=== PATIENT | female | born 1990 | race Caucasian/White ===

== ENCOUNTER → 2017-04-30 15:38 | Outpatient (CLI) | payer OTHER, SELFPAY ==
[2017-04-30 18:58] LABS: Chlamydia Trachomatis by PCR Negative (Negative); Neisserai gonorrhoeae by PCR Negative (Negative); Probe Check PASS; Sample Adequacy Control PASS; Specimen Processing Control PASS
== END ==
PROVIDERS: Family Provider Family Medicine; PCP Family Medicine; Visit Provider Obstetrics & Gynecology
DX: Z11.3 Encounter for screening for infections with a predominantly sexual mode of transmission (principal); Z32.01 Encounter for pregnancy test, result positive
CPT/HCPCS: 87491; 87591

== ENCOUNTER → 2017-05-20 16:43 | Outpatient (CLI) | payer OTHER, SELFPAY ==
[2017-05-20 18:20] LABS: Color, Urine Yellow (Yellow); Glucose, Dipstick Normal (Normal); Ketone-Dipstick 5 mg/dl (Negative); Leukocyte Esterase-Dipstick 100 /ul (Negative); Nitrite-Dipstick Negative (Negative); Occult Blood-Urine 10 /ul (Negative); Protein-Dipstick Negative (Negative); Specific Gravity, Urine 1.025 (1.002-1.030); Urine Bilirubin Dipstick Negative (Negative); Urine Clarity Clear (Clear); Urine Urobilinogen Normal (Normal)
[2017-05-20 18:27] LABS: Absolute Lymphocyte Count 2.32 X10^3/ul (0.83-4.51); Absolute Neutrophil Count 7.1 X10^3/uL (2.0-7.7); Basophil# 0.03 X10^3/uL; Basophil% 0.3 % (0-1); Eosinophil# 0.12 X10^3/uL; Eosinophils% 1.1 % (0-5); Hematocrit 39.3 % (37-47); Hemoglobin 13.1 g/dl (12.0-15.0); Lymphocyte # 2.32 X10^3/ul (4.0); Lymphocyte % 21.7 % (19-41); Mean Corp Hgb Conc 33.3 g/gl (32-36); Mean Corpuscular Hgb 28.1 pg (27.0-32.0); Mean Corpuscular Volume 84.2 fL (81-99); Mean Platelet Vol. 10.8 fl (6.2-12.0); Monocyte# 1.11 X10^3/uL; Monocyte% 10.4 % (0-10); Neutrophil # 7.11 X10^3/uL (2.7-7.7); Neutrophil % 66.4 % (47-70); POSITIVE COUNT NO; POSITIVE DIFFERENTIAL NO; POSITIVE MORPHOLOGY NO; Platelet Count 351 K/mm3 (150-450); RBC Distribution Width CV 12.4 % (11.6-14.6); RBC Distribution Width SD 37.7 fl (35.1-43.9); Red Blood Count 4.67 M/mm3 (4.2-5.4); White Blood Count 10.7 K/mm3 (4.4-11.0)
[2017-05-20 18:36] LABS: COTININE Drug Screen Negative (<200 ng/mL); Thyroid Stim Hormone (TSH) 1.11 uIU/mL (0.358-3.74)
[2017-05-20 18:41] LABS: Amphetamine Urine VISTA NEGATIVE (<1000 ng/mL); Barbiturate Urine VISTA NEGATIVE (< 200 ng/mL); Benzodiazepine Urine VISTA NEGATIVE (< 200 ng/mL); Cocaine Urine VISTA NEGATIVE (< 300 ng/mL); Ecstacy Urine VISTA NEGATIVE (< 500 ng/mL); Methadone Urine VISTA NEGATIVE (< 300 ng/mL); PCP Urine VISTA NEGATIVE (< 25 ng/mL); THC Urine VISTA NEGATIVE (< 50 ng/mL); Vista UDS pH Range 5
[2017-05-20 19:35] LABS: HIV - WCH Non-Reactive (Nonreactive); Rubella IgG 16.8 IU/mL
[2017-05-22 07:08] LABS: Prenatal RPR NONREACTIVE (NONREACTIVE)
[2017-05-22 14:59] LABS: HEPATITIS B SURFACE AG Negative (Negative); Hep C Antibodies <0.1 s/co ratio (0.0-0.9)
== END ==
PROVIDERS: Visit Provider Obstetrics & Gynecology
DX: Z34.81 Encounter for supervision of other normal pregnancy, first trimester (principal)
CPT/HCPCS: 36415; 80307; 81002; 84443; 85025; 86703; 86762; 86803; 87086; 87088; 87340

== ENCOUNTER → 2017-08-04 11:34 | Outpatient (CLI) | payer OTHER, SELFPAY | PROVIDERS: Family Provider Family Medicine; Visit Provider Obstetrics & Gynecology | DX: R00.0 Tachycardia, unspecified (principal) | CPT/HCPCS: 93225; 93226 ==

== ENCOUNTER → 2017-09-29 08:46 | Outpatient (CLI) | payer OTHER, SELFPAY ==
[2017-09-29 11:13] LABS: Hematocrit 36.6 % (37-47); Hemoglobin 12.5 g/dl (12.0-15.0); Mean Corp Hgb Conc 34.2 g/gl (32-36); Mean Corpuscular Hgb 29.5 pg (27.0-32.0); Mean Corpuscular Volume 86.3 fL (81-99); Mean Platelet Vol. 11.1 fl (6.2-12.0); Platelet Count 320 K/mm3 (150-450); RBC Distribution Width CV 13.2 % (11.6-14.6); RBC Distribution Width SD 40.9 fl (35.1-43.9); Red Blood Count 4.24 M/mm3 (4.2-5.4); White Blood Count 9.5 K/mm3 (4.4-11.0)
[2017-09-29 11:14] LABS: Scan Indicated on CBC? Y/N NO
[2017-09-29 11:15] LABS: Glucose Challenge Gest 1H 50g 123 mg/dL (70-140)
== END ==
PROVIDERS: Visit Provider Obstetrics & Gynecology
DX: Z34.83 Encounter for supervision of other normal pregnancy, third trimester (principal)
CPT/HCPCS: 36415; 82950; 85027; 86850

== ENCOUNTER → 2017-11-26 12:01 | Outpatient (CLI) | payer OTHER, SELFPAY ==
[2017-11-26 14:52] LABS: Group B Strep DNA By PCR Negative (Negative); Internal Control PASS; Probe Check PASS; Specimen Processing Control PASS
== END ==
PROVIDERS: Visit Provider Obstetrics & Gynecology
DX: Z36.85 Encounter for antenatal screening for Streptococcus B (principal)
CPT/HCPCS: 87081; 87653

== ENCOUNTER 2017-12-05 09:55 | Outpatient (CLI) | payer OTHER, SELFPAY ==
[2017-12-05 10:14] VITALS: BMI 33.2
--- NOTE | 2017-12-05 15:31 | OB.TRI.NOTE ---
History of Present Illness Date of Service: 12/05/17 Was patient seen by the physician?: No Reason For Visit: DECREASED MOVEMENT Date of Service: 12/05/17 Final JOLANTA: 12/21/17 Final JOLANTA Source: US <20 weeks Gestational age: 37 Weeks and 5 Days History of Present Illness: Reports decreased movement today. No signs of labor or SROM Allergies No Known Allergies Allergy (Verified 01/30/15 14:12) Physical Exam General: Alert, Oriented x3, Cooperative, No apparent distress Lungs: Clear to auscultation, Normal air movement Abdomen: Bowel Sounds Present, Non Tender, Gravid, Appropriate for Gestational Age Extremities:: No edema Neurological: Neuro grossly intact MODELING AGENT: Normal external genitalia Estimated gestational size: Appropriate for gestational size Presentation: Cephalic NST - FHR Rate Baby A Baseline: 140s Variability:: Moderate Accelerations:: 15 x 15 Decelerations:: None NST Reactive:: Yes, Appropriate for gestational age FHR Category:: Category I Uterine Activity:: irregular Impression/Plan Reassuring heart rate pattern today. No signs of labor. Kick counts instructed. f/u in office next week.
== END 2017-12-05 10:48 | disposition home or self-care (01) ==
LOC: WPOUT 10:08 → WP 10:09
PROVIDERS: Visit Provider Obstetrics & Gynecology
DX: O36.8130 Decreased fetal movements, third trimester, not applicable or unspecified (principal); Z3A.37 37 weeks gestation of pregnancy
CPT/HCPCS: 59025; 99218; G0378

== ENCOUNTER 2017-12-22 18:50 | Inpatient (IN) | payer OTHER, SELFPAY ==
[2017-12-22] MEDS: Lactated Ringers 1,000 ML 50 ML IV (20:00)
[2017-12-22 20:04] VITALS: BMI 33.5
[2017-12-22 20:09] LABS: Hematocrit 38.8 % (37-47); Mean Corp Hgb Conc 33.5 g/gl (32-36); Mean Corpuscular Hgb 28.5 pg (27.0-32.0); Mean Corpuscular Volume 85.1 fL (81-99); Mean Platelet Vol. 11.5 fl (6.2-12.0); Platelet Count 285 K/mm3 (150-450); RBC Distribution Width CV 13.6 % (11.6-14.6); RBC Distribution Width SD 41.7 fl (35.1-43.9); Red Blood Count 4.56 M/mm3 (4.2-5.4); White Blood Count 10.1 K/mm3 (4.4-11.0)
[2017-12-22 20:34] LABS: Scan Indicated on CBC? Y/N NO
[2017-12-22] MEDS: miSOPROStol 25 MCG TABLET PO (20:45)
[2017-12-23] MEDS: miSOPROStol 25 MCG TABLET PO ×3 (00:52→09:24)
--- NOTE | 2017-12-23 12:21 | PCM.PN.OB ---
Subjective: Comfortable. Objective: Afeb VSS FHR tracing Cat 1. - Physical Exam General: Alert, Oriented x3, Cooperative, No apparent distress Lungs: Clear to auscultation, Normal air movement Cardiovascular: Regular rate, Regular Rhythm Abdomen: Non Tender, Gravid, Appropriate for Gestational Age Extremities: No edema Skin: No rashes Neurological: Neuro grossly intact Psych/Mental Status: Normal Affect Comment: CE 2.5 cm 50% -3 Weight: 214 lb 1.102 oz Body Mass Index (BMI) 33.5 Intake and Output for Last 24 Hours 12/21/17 12/22/17 12/23/17 23:59 23:59 23:59 Intake Total 800 / 800 Output Total 500 / 500 1900 / 1900 Balance -500 / -500 -1100 / -1100 Laboratory Tests Past 24 Hrs 12/22/17 12/22/17 19:35 19:35 WBC 10.1 RBC 4.56 Hgb 13.0 Hct 38.8 MCV 85.1 MCH 28.5 MCHC 33.5 RDW 13.6 RDW Differential 41.7 Plt Count 285 MPV 11.5 Blood Type B NEGATIVE Antibody Screen NEGATIVE Medical Necessity - Tobacco Use Smoking Status: Never smoker Assessment/Plan Now s/p 4 doses of cytotec. Cervix now more favorable. Reassuring FHR tracing. AROM performed with clear fluid. Will start pitocin at 1:30 pm.
[2017-12-23] MEDS: 0.9% Saline Lock 10 ML Syringe IV (13:48)
[2017-12-23] MEDS: Oxytocin 30 units/NS 500 ml 30 UNITS/500 ML IV.SOLN IV (13:50)
[2017-12-23] MEDS: Lactated Ringers 1,000 ML 50 ML IV ×2 (15:00→18:54)
[2017-12-23] MEDS: fentaNYL-bupivacaine (epidural) 100 ML BAG EPIDURAL (15:16)
--- NOTE | 2017-12-23 19:23 | PCM.PN.OB ---
Subjective: Feeling some pressure with contractions. Objective: Afeb VSS - Physical Exam General: Alert, Oriented x3, Cooperative, No apparent distress Abdomen: Gravid, Appropriate for Gestational Age Skin: No rashes Neurological: Neuro grossly intact Psych/Mental Status: Normal Affect Comment: CE FD +1 station Weight: 214 lb 1.102 oz Body Mass Index (BMI) 33.5 Intake and Output for Last 24 Hours 12/21/17 12/22/17 12/23/17 23:59 23:59 23:59 Intake Total 800 / 800 Output Total 500 / 500 1900 / 1900 Balance -500 / -500 -1100 / -1100 Laboratory Tests Past 24 Hrs 12/22/17 12/22/17 19:35 19:35 WBC 10.1 RBC 4.56 Hgb 13.0 Hct 38.8 MCV 85.1 MCH 28.5 MCHC 33.5 RDW 13.6 RDW Differential 41.7 Plt Count 285 MPV 11.5 Blood Type B NEGATIVE Antibody Screen NEGATIVE Medical Necessity - Tobacco Use Smoking Status: Never smoker Assessment/Plan Now starting pushing efforts. heart rate decelerations to the 90s with pushing efforts but good recovery to baseline after contractions. Expect vaginal delivery.
--- NOTE | 2017-12-23 19:32 | DCINST_ITS ---
Discharge Diet: No Restrictions Discharge Activity: Return to Normal Activity, May Drive, May Shower Return to work on:: 02/22/18 May shower in (days): 0 May resume sexual activity in: 4-6 weeks Call your doctor if your incision/area has: Sudden Increased Bleeding, Foul Smelling Discharge Call your doctor if you observe: Fever of 101 or Higher, Inability to urinate, Inability to have a bowel movement, Using more than one pad per hour, Shortness of breath, Chest pain, Calf discomfort, Uncontrolled pain Cleanse incision/area with: Soap & Water Additional Instructions: If you experience any of the following, contact your healthcare provider. * Bleeding that soaks a pad every hour for 2 hours * Fever 100.4 or higher * Unrelieved incision or abdominal pain * Swelling, redness, discharge or bleeding from your incision or episiotomy site * Your incision begins to separate * Problems urinating (including inability to urinate or burning while urinating). * Visual changes * Severe headache * Flu-like symptoms * Pain or redness in one of both of your breasts * Pain, warmth, tenderness or swelling in your legs, especially the calf area * Frequent nausea and vomiting * Symptoms of depression or anxiety If you experience any of the following, call 911 or go to the nearest Emergency Room. * Chest pain * Problems breathing * Seizure activity * Partial or complete paralysis of a body part, slurred speech, weakness or drooping of the face, or a sudden inability to walk or hold your balance Allergies/Adverse Reactions: Allergies No Known Allergies Allergy (Verified 12/22/17 20:01) Medications to take at Discharge Vits [Prenatabs FA ] 1 tablet PO DAILY 01/27/15 Ibuprofen 600 mg PO Q6H PRN PRN #30 tab 12/23/17 The following prescriptions were given: Ibuprofen 600 mg PO Q6H PRN PRN #30 tab PRN Reason: pain or cramping Please Follow Up With: Fredy Mena MD When: 6 weeks Primary Care Physician: Fredy Artis MD [Primary Care Provider] - Test Results: Test results from this visit will be discussed in further detail at your follow- up appointment, if applicable. Proposed Discharge Date: 12/25/17
[2017-12-23] MEDS: Oxytocin 30 units/NS 500 ml 30 UNITS/500 ML IV.SOLN 334 UNITS IV (20:45)
[2017-12-23] MEDS: Oxytocin 30 units/NS 500 ml 30 UNITS/500 ML IV.SOLN 167 UNITS IV (20:45)
--- NOTE | 2017-12-23 20:54 | PCM.OB.VAG ---
Vaginal Delivery Maternal Presentation: Medically Indicated Induction 41 weeks for post dates induction. Uncomplicated Method of Induction: Pitocin, Cytotec Medical Reason for Induction: Post term Amniotic Membrane Rupture Type: Artificial Rupture of Membrane time: 1200 Amniotic Fluid Description: Clear Final JOLANTA: 12/16/17 Final JOLANTA Source: US <20 weeks Gestational age: 41 Weeks and 0 Days [facility] doctor who attended delivery (if requested by OB): Karla Fitzgerald Date of Procedure: 12/23/17 Pre-Operative Diagnosis: Labor, repetitive fhr decelerations Post-Operative Diagnosis: same Surgery/ Procedure Performed: Vacuum Assisted Vaginal Delivery Anesthesiologist: Rocky Orta Type of Anesthesia: Epidural Description of Procedure: Progressed to FD then pushed for over 2 hours to bring heas to +2 station. Due to lack of rapid progress and repetitive heart rate decelerations to the 90s with meconium stained fluid present decision made to hasten delivery with the assist of the Kiwi vacuum device. The first two Kiwis placed would not hold suction a third was placed with care to avoid the fontanelles. Will gentle traction and two pulls over two contractions the head was delivered to the perineum. Thick meconeum stained fluid was noted. There was a loose umbical cord around the neck x 2 which was easily reduced. After delivery the mouth was suctioned and the cord clamped and cut. The baby was then taken to the warmer for evaluation by Dr. Fitzgerald. The placenta was delivered spontaneously intact with a centrally located 3VC. The uterus contracted well. Inspection revealed an intact cervix and upper vaginal. A second degree posterior vaginal tear was repaired with 2-0 vicryl. Presentation: Vertex Placental Delivery Description: Spontaneous Placenta Disposition: [facility] Percentage of Placenta Abruption: 0 Cord Vessel Description: 3 Vessels Nuchal Cord Compression: With compression Cord Gases drawn per routine: ABG, VBG Cord Entanglement: Around neck x 2, loose Drain: Perez to straight drain Estimated Blood Loss: 300cc Infant A gender: Male (1 minute): 6 (5 minute): 8 Episiotomy Description: None Laceration: Midline, Vaginal Extension/lac, 2nd degree Medications given after delivery: IV Pitocin Complications: None
[2017-12-23] MEDS: Ibuprofen 600 MG Tablet PO (23:17)
[2017-12-24] VITALS: BP 135/57; PULSE 63; RESP 18; TEMP 36.3; O2SAT 95
[2017-12-24 04:00] VITALS: BP 127/69; PULSE 56; RESP 18; TEMP 36.6; O2SAT 97
[2017-12-24] MEDS: Ibuprofen 600 MG Tablet PO ×3 (05:25→18:46)
[2017-12-24 05:38] LABS: Hematocrit 35.2 % (37-47); Mean Corp Hgb Conc 34.1 g/gl (32-36); Mean Corpuscular Hgb 29.1 pg (27.0-32.0); Mean Corpuscular Volume 85.2 fL (81-99); Mean Platelet Vol. 11.6 fl (6.2-12.0); Platelet Count 249 K/mm3 (150-450); RBC Distribution Width CV 13.9 % (11.6-14.6); RBC Distribution Width SD 42.5 fl (35.1-43.9); Red Blood Count 4.13 M/mm3 (4.2-5.4); White Blood Count 14.8 K/mm3 (4.4-11.0)
[2017-12-24 05:39] LABS: Scan Indicated on CBC? Y/N NO
--- NOTE | 2017-12-24 07:53 | PCM.PN.OB ---
Subjective: Doing well. No specific complaints. Attempting breast feeding. Objective: AFeb VSS - Physical Exam General: Alert, Oriented x3, Cooperative, No apparent distress Lungs: Clear to auscultation, Normal air movement Cardiovascular: Regular rate, Regular Rhythm Abdomen: Non Tender, - - Fundus firm nontender Extremities: No edema Skin: No rashes Neurological: Neuro grossly intact Psych/Mental Status: Normal Affect Comment: Lochia appropriate Vital Signs Temp Pulse Resp BP Pulse Ox 97.8 F 56 L 18 127/69 H 97 12/24/17 04:00 12/24/17 04:00 12/24/17 04:00 12/24/17 04:00 12/24/17 04:00 Oxygen Delivery Method Room Air Weight: 214 lb 1.102 oz Body Mass Index (BMI) 33.5 Intake and Output for Last 24 Hours 12/22/17 12/23/17 12/24/17 23:59 23:59 23:59 Intake Total 4769 / 4769 Output Total 500 / 500 4400 / 4400 700 / 700 Balance -500 / -500 369 / 369 -700 / -700 Laboratory Tests Past 24 Hrs 12/24/17 05:25 WBC 14.8 H RBC 4.13 L Hgb 12.0 Hct 35.2 L MCV 85.2 MCH 29.1 MCHC 34.1 RDW 13.9 RDW Differential 42.5 Plt Count 249 MPV 11.6 Medical Necessity - Tobacco Use Smoking Status: Never smoker Assessment/Plan Doing well on PP day#1. Hgb stable. Continue routine PP care.
[2017-12-24 08:10] VITALS: BP 127/60; PULSE 60; RESP 16; TEMP 36.4; O2SAT 97
[2017-12-24] MEDS: Prenatal Vits Tablet 1 TABLET PO (09:16)
[2017-12-24 12:00] VITALS: BP 124/67; PULSE 82; RESP 16; TEMP 36.5
[2017-12-24 16:30] VITALS: BP 123/57; PULSE 66; RESP 18; TEMP 36.5; O2SAT 96
[2017-12-24 19:45] VITALS: BP 126/58; PULSE 61; RESP 16; TEMP 36.7; O2SAT 96
[2017-12-25] MEDS: Ibuprofen 600 MG Tablet PO ×2 (00:49→08:16)
[2017-12-25 02:20] VITALS: BP 128/65; PULSE 74; RESP 16; TEMP 36.7; O2SAT 95
--- NOTE | 2017-12-25 08:25 | PCM.PN.OB ---
Subjective: No complaints. Breast feeding. Bleeding light. Objective: Afeb VSS - Physical Exam General: Alert, Oriented x3, Cooperative, No apparent distress Lungs: Clear to auscultation, Normal air movement Cardiovascular: Regular rate, Regular Rhythm Abdomen: Soft, Non Tender, Non-Distended, - - Fundus nontender Extremities: No edema Skin: No rashes Neurological: Neuro grossly intact Psych/Mental Status: Normal Affect Comment: Lochia light Vital Signs Temp Pulse Resp BP Pulse Ox 98.0 F 74 16 128/65 H 95 12/25/17 02:20 12/25/17 02:20 12/25/17 02:20 12/25/17 02:20 12/25/17 02:20 Oxygen Delivery Method Room Air Weight: 214 lb 1.102 oz Body Mass Index (BMI) 33.5 Intake and Output for Last 24 Hours 12/23/17 12/24/17 12/25/17 23:59 23:59 23:59 Intake Total 4769 / 4769 Output Total 4400 / 4400 700 / 700 Balance 369 / 369 -700 / -700 Medical Necessity - Tobacco Use Smoking Status: Never smoker Assessment/Plan Doing well on PP day#2. Cleared for discharge home today. Home going instructions and warnings given.
--- NOTE | 2017-12-25 08:27 | PCM.DC.SUM ---
Discharge Date and Diagnosis Date of Admission: 12/22/17 Date of Discharge: 12/25/17 - Primary Discharge Diagnosis S/P Vacuum assisted delivery Hospital Course and Treatment Operations: None Procedures: - - Cytotec/pitocin induction, Vacuum assisted vaginal delivery. Summary of Care Provided: The patient is a 27 year old F admitted for induction of labor at 41 weeks ega. Induction resulted in vacuum assisted delivery without complication. Post course unremarkable. Discharged home on PP day#2.[] Discharge Diet: No Restrictions Discharge Activity: Return to Normal Activity, May Drive, May Shower Return to work on:: 02/22/18 May shower in (days): 0 May resume sexual activity in: 4-6 weeks Call your doctor if your incision/area has: Sudden Increased Bleeding, Foul Smelling Discharge Call your doctor if you observe: Fever of 101 or Higher, Inability to urinate, Inability to have a bowel movement, Using more than one pad per hour, Shortness of breath, Chest pain, Calf discomfort, Uncontrolled pain Cleanse incision/area with: Soap & Water Home Medications: Medications to take at Discharge Vits [Prenatabs FA ] 1 tablet PO DAILY 01/27/15 Ibuprofen 600 mg PO Q6H PRN PRN #30 tab 12/23/17 Following Prescrptions Were Given to Patient: Ibuprofen 600 mg PO Q6H PRN PRN #30 tab PRN Reason: pain or cramping Primary Care Physician: Fredy Artis MD [Primary Care Provider] - Please Follow Up With: Fredy Mena MD When: 6 weeks Disposition: Home Minutes spent on discharge:: 15 Patient Condition:: Good Medical Necessity - Tobacco Use Smoking Status: Never smoker Meaningful Use Info Meaningful Use Diagnoses (Choose all that apply): None applicable
[2017-12-25 08:35] VITALS: BP 127/60; PULSE 79; RESP 16; TEMP 36.6; O2SAT 96
[2017-12-25] MEDS: Prenatal Vits Tablet 1 TABLET PO (10:48)
--- NOTE | 2017-12-25 13:00 | CASEMGMT ---
Social Work Labor and Delivery unit Social work consult by dialysis registered nurse due to maternal history of depression. Met with patient/mother of baby (MOB) today for assessment, introducing to self and role. Full details of assessment documented in the baby's chart where consult originated. Behavioral Health Issues: Mental Health History: MOB reports history of depression and anxiety, with history of counseling thought nothing currently. MOB reports to have someone to call if feels need to get back into counseling and reports willingness to do so should the need arise. MOB reports usually affect the most in the winter time, much like seasonal affective disorder. MOB is not on medications current. No reports or disclosure of any history of suicidal ideation or harm to others. Substance Use History: No reports or indication of substance abuse or dependence issues. Family History: MOB reports to suspect that her sister has some addiction issues. MOB does report to be adopted as are the rest of MOB?s siblings. MOB and sister are not biologically related. Drug Screens: Negative maternal drug screen on 05-20-17. ASSESSMENT: MOB pleasant, talkative, good eye contact, appropriate affect and mood to content discussed. MOB spontaneous in conversation. MOB expressed appreciation for social work visit, as MOB voiced that it is helpful to be able to talk to others and just get things off chest. MOB reports counseling has been helpful to MOB in this aspect in the past, that can just say what needs to an unload stressors. MOB able to voice some healthy coping skills when managing stress, and from conversation seems to have good insight and judgement into boundaries and importance of self-care. MOB reports to be aware of mental health resources if needed in the future. MOB reports to have adequate help at home going, will be home for a time and famiy lives close by to help when needed. MOB reports to have needed baby supplies. MOB denies any needs or concerns for home going. Observed MOB to handle baby gently and appropriately. MOB identifies loving feelings for the baby as well. No concerns voiced by staff regarding mother/child interactions. PLAN: MOB and baby to discharge home when ready. MOB has been provided depression packet, including online and local supports if needed. No other services requested or indicated. -LIZZIE Adame, SYSTEM ADMINISTRATION MANAGER
[2017-12-25 14:00] VITALS: BP 116/74; PULSE 70; RESP 16; TEMP 36.4; O2SAT 97
[2017-12-25 14:43] VITALS: BP 116/74; PULSE 70; RESP 16; TEMP 36.4; O2SAT 97
== END 2017-12-25 14:30 | disposition home or self-care (01) | DRG 775 ==
PROVIDERS: Obstetrics & Gynecology; Admitting Provider Obstetrics & Gynecology; Referring Provider Obstetrics & Gynecology; Visit Provider Obstetrics & Gynecology
DX: O76 Abnormality in fetal heart rate and rhythm complicating labor and delivery (principal); O71.4 Obstetric high vaginal laceration alone; O41.03X0 Oligohydramnios, third trimester, not applicable or unspecified; O77.0 Labor and delivery complicated by meconium in amniotic fluid; O48.0 Post-term pregnancy; O69.81X0 Labor and delivery complicated by cord around neck, without compression, not applicable or unspecified; Z3A.41 41 weeks gestation of pregnancy; Z37.0 Single live birth
CPT/HCPCS: 59025; 59050; 85027; 86850; 86900; 99218; J7120; 90686; A4216; G0378

== ENCOUNTER 2017-12-30 10:00 | Outpatient (CLI) | payer OTHER, SELFPAY | END 2017-12-30 10:50 | disposition home or self-care (01) | LOC: WPOUT 10:00 → WP 10:01 | PROVIDERS: Referring Provider Obstetrics & Gynecology; Visit Provider Obstetrics & Gynecology | DX: Z53.9 Procedure and treatment not carried out, unspecified reason (principal) ==

== ENCOUNTER → 2018-05-13 10:45 | Outpatient (CLI) | payer OTHER, SELFPAY ==
[2018-05-17 11:27] LABS: HPV Reflexed? NOT INDICATED
== END ==
PROVIDERS: Referring Provider Obstetrics & Gynecology; Visit Provider Obstetrics & Gynecology
DX: Z12.4 Encounter for screening for malignant neoplasm of cervix (principal)
CPT/HCPCS: 88175; G0145

== ENCOUNTER → 2020-08-29 10:11 | Outpatient (CLI) | payer OTHER, SELFPAY ==
[2020-08-29 12:14] LABS: Color, Urine Yellow (Yellow); Glucose, Dipstick Normal (Normal); Ketone-Dipstick Negative (Negative); Leukocyte Esterase-Dipstick Negative /ul (Negative); Nitrite-Dipstick Negative (Negative); Occult Blood-Urine Negative /ul (Negative); Protein-Dipstick Negative (Negative); Urine Bilirubin Dipstick Negative (Negative); Urine Clarity Clear (Clear); Urine Urobilinogen Normal (Normal)
[2020-08-29 12:18] LABS: Absolute Lymphocyte Count 1.69 X10^3/uL (0.83-4.51); Basophil# 0.04 X10^3/uL; Basophil% 0.5 % (0-1); Eosinophil# 0.07 X10^3/uL; Eosinophils% 0.9 % (0-5); Hemoglobin 14.3 g/dL (12.0-15.0); Lymphocyte # 1.69 X10^3/ul (0.83-4.51); Lymphocyte % 22.8 % (19-41); Mean Corp Hgb Conc 33.3 g/dL (32-36); Mean Corpuscular Hgb 29.2 pg (27.0-32.0); Mean Corpuscular Volume 87.9 fL (81-99); Mean Platelet Vol. 10.6 fl (6.2-12.0); Monocyte# 0.64 X10^3/uL; Monocyte% 8.6 % (0-10); NRBC Flagged by Analyzer 0 % (0-5); Neutrophil # 4.95 X10^3/uL (2.7-7.7); Neutrophil % 66.9 % (47-70); Platelet Count 296 K/mm3 (150-450); RBC Distribution Width CV 12.3 % (11.6-14.6); RBC Distribution Width SD 39.9 fl (35.1-43.9); Red Blood Count 4.89 M/mm3 (4.2-5.4); White Blood Count 7.4 K/mm3 (4.4-11.0)
[2020-08-29 12:48] LABS: Thyroid Stim Hormone (TSH) 1.32 uIU/mL (0.358-3.74)
[2020-08-29 12:56] LABS: Amphetamine Urine VISTA NEGATIVE (<1000 ng/mL); Barbiturate Urine VISTA NEGATIVE (< 200 ng/mL); Benzodiazepine Urine VISTA NEGATIVE (< 200 ng/mL); Cocaine Urine VISTA NEGATIVE (< 300 ng/mL); Ecstacy Urine VISTA NEGATIVE (< 500 ng/mL); Methadone Urine VISTA NEGATIVE (< 300 ng/mL); PCP Urine VISTA NEGATIVE (< 25 ng/mL); THC Urine VISTA NEGATIVE (< 50 ng/mL); Vista UDS pH Range 7
[2020-08-29 13:07] LABS: HIV - WCH Non-Reactive (Nonreactive); Hepatitis B Surface Antigen Non-Reactive (Nonreactive); Hepatitis C Antibody Non-Reactive (Nonreactive); Rubella IgG Reactive (Nonreactive); Syphilis Antibodies Non-reactive
[2020-09-01 03:06] LABS: Chlamydia By Nucleic Acid AMP Negative (Negative)
[2020-09-01 07:38] LABS: Gonococcus By Nucleic Acid AMP Negative (Negative)
== END ==
PROVIDERS: Visit Provider Obstetrics & Gynecology
DX: Z34.81 Encounter for supervision of other normal pregnancy, first trimester (principal)
CPT/HCPCS: 36415; 80307; 81002; 84443; 85025; 86703; 86762; 86780; 86803; 87340; 87491; 87591

== ENCOUNTER → 2021-01-15 13:43 | Outpatient (CLI) | payer OTHER, SELFPAY ==
[2021-01-15 14:06] LABS: Hematocrit 36.4 % (37-47); Hemoglobin 12.4 g/dL (12.0-15.0); Mean Corp Hgb Conc 34.1 g/dL (32-36); Mean Corpuscular Hgb 30.2 pg (27.0-32.0); Mean Corpuscular Volume 88.6 fL (81-99); Mean Platelet Vol. 10.5 fl (6.2-12.0); Platelet Count 266 K/mm3 (150-450); RBC Distribution Width CV 12.7 % (11.6-14.6); RBC Distribution Width SD 41.1 fl (35.1-43.9); Red Blood Count 4.11 M/mm3 (4.2-5.4); White Blood Count 10.1 K/mm3 (4.4-11.0)
[2021-01-15 14:25] LABS: Glucose Challenge Gest 1H 50g 89 mg/dL (70-140)
== END ==
PROVIDERS: Visit Provider Obstetrics & Gynecology
DX: Z34.82 Encounter for supervision of other normal pregnancy, second trimester (principal)
CPT/HCPCS: 36415; 82950; 85027; 86850

== ENCOUNTER 2021-02-05 19:05 | Outpatient (CLI) | payer OTHER, SELFPAY ==
[2021-02-05 19:41] VITALS: BMI 31.1
[2021-02-05 19:47] VITALS: BP 117/56; PULSE 59; PULSE 65; O2SAT 97
[2021-02-05 19:50] VITALS: TEMP 36.4
[2021-02-05 20:56] LABS: Bacteria 0 SEEN /hpf (None Seen); Mucous, Urine 0 SEEN /hpf (<or=2+); Red Blood Cells-Urine 0 SEEN /hpf (0-5)
[2021-02-05] MEDS: Lactated Ringers 1,000 ML 999 ML IV (20:58)
[2021-02-05 21:04] LABS: Color, Urine Straw (Yellow); Glucose, Dipstick Normal (Normal); Ketone-Dipstick Negative (Negative); Leukocyte Esterase-Dipstick 100 /ul (Negative); Nitrite-Dipstick Negative (Negative); Occult Blood-Urine Negative /ul (Negative); Protein-Dipstick Negative (Negative); Urine Bilirubin Dipstick Negative (Negative); Urine Clarity Sl. Cloudy (Clear); Urine Urobilinogen Normal (Normal)
[2021-02-05 21:17] LABS: Squamous Epithelial Cells - UA 5-10 SEEN /hpf (5-10); White Blood Cells 0-5 SEEN /hpf (0-5)
[2021-02-05 21:29] LABS: Fetal Fibronectin Negative
--- NOTE | 2021-02-06 08:12 | OB.TRI.HP_ITS ---
HPI - General HPI Narrative JUAN FRANCISCO ROB, is a 30 at 28 6/7 wga by LMP 07/18/20 c/w 9w US who presents with c/o abdominal pain q20 minutes. [facility] Medical History (Updated 02/06/21 @ 08:[address] Ly Barber MD) Adopted Anxiety Home Medications Prenatabs FA 1 tab PO DAILY 01/27/15 [History Last Taken 12/22/17 08:00] Allergy/AdvReac Type Severity Reaction Status Date / Time No Known Allergies Allergy Verified 02/05/21 19:54 Social History Smoking Status: Never smoker History 2 Elective abortions Hx Para 1 Spontaneous abortions Hx # Term Pregnancies 1 Ectopic pregnancies Hx # Pregnancies Multiple births # of living children 1 Past Pregnancies Del. Date Name GA/Weeks Outcome Route Bth Weight Infant Gen Labor Lgth An esthesia Del Locatn Provider FOB Unknown 41 live - full term vacuum 7lb 15oz Male 12 epi dural Meredith Brannon Delivery Date: IOL, nuchal cord x 2 Ly Wheeler Constitutional Constitutional: Denies chills, fever(s) or headache(s) Cardiovascular Cardiovascular: Reports abdominal pain; Denies chest pain, dyspnea, palpitations or pedal edema Respiratory/Chest Respiratory/Chest: Denies cough Gastrointestinal Gastrointestinal: Reports cramping; Denies constipation or diarrhea Genitourinary Genitourinary: Reports movement Details: present; Denies burning urination, change in urinary stream, difficulty urinating, urinary frequency or urinary urgency Physical Exam Const alert, oriented x3 and no apparent distress General Appearance: cooperative and comfortable HEENT normocephalic Resp normal respiratory effort and normal air movement GI normal to inspection, nondistended, normoactive bowel sounds, soft to palpation, non-tender and non-distended Inspection: gravid appearance of the vagina normal Narrative: SVE 0/50/-5, posterior and moderate NST FHR Rate Baby A Baseline: 140 Variability:: Moderate Accelerations:: 10 x 10 Decelerations:: None NST Reactive:: Yes FHR Category:: Category I Uterine Activity:: 07/07 Assessment & Plan (1) 28 weeks gestation of : PLAN: NST AGA (2) False labor before 37 completed weeks of gestation: QUALIFIERS: Trimester: third trimester Qualified Code(s): O47.03 - False labor before 37 completed weeks of gestation, third trimester PLAN: Cervix closed U/A not c/w UTI FFN negative Pt sx improved with IVF bolus and uterine contractions spaced out. Repeat SVE unchanged and pt d/c'd home Charges/Coding Visit Charges Office Visits / Consults: [id number] OV L2 Est
== END 2021-02-05 23:05 | disposition home or self-care (01) ==
LOC: WPOUT 19:18 → WP 19:20
PROVIDERS: Visit Provider Obstetrics & Gynecology
DX: O47.03 False labor before 37 completed weeks of gestation, third trimester (principal); Z3A.28 28 weeks gestation of pregnancy; F41.9 Anxiety disorder, unspecified; O99.343 Other mental disorders complicating pregnancy, third trimester
CPT/HCPCS: 59025; 59050; 81001; 82731; 99218; J7120; G0378

== ENCOUNTER 2021-02-10 17:30 | Outpatient (CLI) | payer OTHER, SELFPAY ==
[2021-02-10 17:34] VITALS: BP 131/61; PULSE 77; TEMP 36.3; O2SAT 98
[2021-02-10 17:49] VITALS: BMI 31.1
[2021-02-10 17:52] VITALS: BP 136/65; PULSE 70
[2021-02-10 18:10] VITALS: BP 129/75; PULSE 74
[2021-02-10 18:15] LABS: Mucous, Urine 0 SEEN /hpf (<or=2+); Red Blood Cells-Urine 0 SEEN /hpf (0-5)
[2021-02-10 18:18] LABS: Color, Urine Yellow (Yellow); Glucose, Dipstick Normal (Normal); Ketone-Dipstick Negative (Negative); Leukocyte Esterase-Dipstick 500 /ul (Negative); Nitrite-Dipstick Negative (Negative); Occult Blood-Urine 10 /ul (Negative); Protein-Dipstick Negative (Negative); Urine Bilirubin Dipstick Negative (Negative); Urine Clarity Clear (Clear); Urine Urobilinogen Normal (Normal); Urine pH 6.5 (5.0 - 8.0)
[2021-02-10 18:22] VITALS: BP 133/63; PULSE 77
[2021-02-10 18:31] LABS: Bacteria 1+ /hpf (None Seen); Squamous Epithelial Cells - UA 5-10 SEEN /hpf (5-10); White Blood Cells 5-10 SEEN /hpf (0-5)
--- NOTE | 2021-02-10 18:53 | OB.TRI.HP_ITS ---
HPI - General HPI Narrative JUAN FRANCISCO ROB, is a 30 F who presents with decreased movement Maternal Data Information JOLANTA Calculator Estimated Delivery Date Method Current WG Current Estimate 04/24/21 LMP (Certain) 29w 4d PFSH PFSH Medical History (Updated 02/10/21 @ 18:[address] Ly Barber MD) Adopted Anxiety Home Medications Prenatabs FA 1 tab PO DAILY 01/27/15 [History Last Taken 02/10/21 10:00] acetaminophen 500 mg PO Q6H PRN 02/10/21 [History Last Taken 02/10/21 10:00] nitrofurantoin monohyd/m-cryst [Macrobid] 100 mg PO Q12H 7 Days #14 cap 02/10/21 [Rx Last Taken Unknown] Allergy/AdvReac Type Severity Reaction Status Date / Time No Known Allergies Allergy Verified 02/10/21 17:55 Social History Smoking Status: Never smoker History 2 Elective abortions Hx Para 1 Spontaneous abortions Hx # Term Pregnancies 1 Ectopic pregnancies Hx # Pregnancies Multiple births # of living children 1 Past Pregnancies Del. Date Name GA/Weeks Outcome Route Bth Weight Gen Labor Lgth Anesthesia Del Locatn Provider FOB Unknown 41 live - full term vacuum 7lb 15oz Male 12 epi dural [place] Brannon Delivery Date: IOL, nuchal cord x 2 Ly Wheeler NST FHR Rate Baby A Baseline: 140 Accelerations:: 10 x 10 Decelerations:: None NST Reactive:: Yes and Appropriate for gestational age FHR Category:: Category I Uterine Activity:: 0/10 Assessment & Plan (1) Acute cystitis during in third trimester: PLAN: Ucx Rx Macrobid (2) : QUALIFIERS: Weeks of gestation: 29 weeks Qualified Code(s): Z3A.29 - 29 weeks gestation of PLAN: status reassuring d/c home
[2021-02-10] MEDS: Nitrofurantoin Macrocrystals 100 MG Capsule PO (19:06)
== END 2021-02-10 19:10 | disposition home or self-care (01) ==
LOC: WPOUT 17:32 → WP 17:39
PROVIDERS: Referring Provider Obstetrics & Gynecology; Visit Provider Obstetrics & Gynecology
DX: O23.13 Infections of bladder in pregnancy, third trimester (principal); O36.8130 Decreased fetal movements, third trimester, not applicable or unspecified; Z3A.29 29 weeks gestation of pregnancy; N30.00 Acute cystitis without hematuria; O99.343 Other mental disorders complicating pregnancy, third trimester; F41.9 Anxiety disorder, unspecified
CPT/HCPCS: 59025; 59050; 81001; 87086; 87088; 99218; G0378

== ENCOUNTER 2021-02-26 07:18 | Outpatient (CLI) | payer OTHER, SELFPAY ==
[2021-02-26 07:33] VITALS: BP 144/60; PULSE 76; TEMP 36.2; O2SAT 97
[2021-02-26 07:34] VITALS: PULSE 81; O2SAT 98
[2021-02-26 07:39] VITALS: PULSE 73; O2SAT 97
[2021-02-26 07:40] VITALS: BMI 31.4
[2021-02-26 07:44] VITALS: PULSE 77; O2SAT 97
[2021-02-26 07:47] VITALS: BP 123/58; PULSE 69; O2SAT 98
[2021-02-26 09:19] VITALS: BP 117/58; PULSE 71; TEMP 36.3; O2SAT 97
[2021-02-26 09:59] LABS: Mucous, Urine 0 SEEN /hpf (<or=2+); Red Blood Cells-Urine 0 SEEN /hpf (0-5)
[2021-02-26 10:02] LABS: Color, Urine Yellow (Yellow); Glucose, Dipstick Normal (Normal); Ketone-Dipstick Negative (Negative); Leukocyte Esterase-Dipstick 100 /ul (Negative); Nitrite-Dipstick Negative (Negative); Occult Blood-Urine Negative /ul (Negative); Protein-Dipstick Negative (Negative); Specific Gravity, Urine 1.015 (1.002-1.030); Urine Bilirubin Dipstick Negative (Negative); Urine Clarity Clear (Clear); Urine Urobilinogen Normal (Normal)
[2021-02-26 10:09] LABS: Bacteria 1+ /hpf (None Seen); Squamous Epithelial Cells - UA 10-25 SEEN /hpf (5-10); White Blood Cells 0-5 SEEN /hpf (0-5)
--- NOTE | 2021-03-02 07:20 | PN_ITS ---
Progress Note Pt seen for pelvic pressure and contractions. CE internal os closed. FHR reactive, reassuring. Planned to monitor at least 2 hours. Triage visit comp leted by Dr. Jon Barber.
--- NOTE | 2021-04-10 06:52 | OB.TRI.NOTE ---
HPI - General HPI Narrative JUAN FRANCISCO ROB, is a 30 F at 31 6/7 weeks gestation with c/o contractions and pelvic pressure. Maternal Data Information JOLANTA Calculator Estimated Delivery Date Method Current WG Current Estimate 04/24/21 LMP (Certain) 38w 0d PFSH PFSH Medical History (Updated 04/10/21 @ 06:[address] Ly Barber MD) Adopted Anxiety Home Medications Prenatabs FA 1 tab PO DAILY 01/27/15 [History Last Taken 02/24/21 21:00] Allergy/AdvReac Type Severity Reaction Status Date / Time No Known Allergies Allergy Verified 02/26/21 07:40 Social History Smoking Status: Never smoker History 2 Elective abortions Hx Para 1 Spontaneous abortions Hx # Term Pregnancies 1 Ectopic pregnancies Hx # Pregnancies Multiple births # of living children 1 Past Pregnancies Del. Date Name GA/Weeks Outcome Route Bth Weight Gen Labor Lgth Anesthesia Del Locatn Provider FOB Unknown 41 live - full term vacuum 7lb 15oz Male 12 epidural Juan Manuel Brannon Delivery Date: IOL, nuchal cord x 2 Ly Wheeler NST FHR Rate Baby A Baseline: 140 Variability:: Moderate Accelerations:: 15 x 15 Decelerations:: None NST Reactive:: Yes FHR Category:: Category I Uterine Activity:: irritability Assessment & Plan (1) : QUALIFIERS: Weeks of gestation: 31 weeks Qualified Code(s): Z3A.31 - 31 weeks gestation of PLAN: False labor, [place] U/A contaminated, f/u Ucx Cat I FHR d/c home
== END 2021-02-26 10:00 | disposition home or self-care (01) ==
LOC: WPOUT 07:24 → WP 07:24
PROVIDERS: Obstetrics & Gynecology; Referring Provider Student in an Organized Health Care Education/Training Program; Visit Provider Student in an Organized Health Care Education/Training Program
DX: O47.9 False labor, unspecified (principal); Z3A.00 Weeks of gestation of pregnancy not specified
CPT/HCPCS: 59025; 59050; 81001; 87086; 87088; 99218; G0378

== ENCOUNTER → 2021-02-27 16:48 | Outpatient (CLI) | payer OTHER, SELFPAY ==
[2021-02-27 17:57] LABS: Fetal Fibronectin Negative
== END ==
PROVIDERS: Visit Provider Obstetrics & Gynecology
DX: O47.9 False labor, unspecified (principal); Z3A.00 Weeks of gestation of pregnancy not specified
CPT/HCPCS: 82731

== ENCOUNTER 2021-04-01 13:03 | Outpatient (CLI) | payer OTHER, SELFPAY | END 2021-04-01 23:59 | disposition home or self-care (01) | LOC: LABSPEC 13:05 | PROVIDERS: Visit Provider Obstetrics & Gynecology | DX: Z36.85 Encounter for antenatal screening for Streptococcus B (principal) | CPT/HCPCS: 87081 ==

== ENCOUNTER 2021-04-18 19:10 | Inpatient (IN) | payer OTHER, SELFPAY ==
[2021-04-18 19:34] VITALS: TEMP 36.5
[2021-04-18 19:37] VITALS: BP 134/66; PULSE 57; PULSE 58; O2SAT 98
[2021-04-18 19:42] VITALS: PULSE 63; O2SAT 99
[2021-04-18] MEDS: Lactated Ringers 1,000 ML 50 ML IV (19:45)
[2021-04-18 19:47] VITALS: PULSE 64; O2SAT 99
[2021-04-18 19:53] VITALS: BMI 33.7
[2021-04-18 20:19] LABS: Absolute Lymphocyte Count 1.74 X10^3/uL (0.83-4.51); Absolute Neutrophil Count 6.3 X10^3/uL (2.0-7.7); Basophil# 0.02 X10^3/uL; Basophil% 0.2 % (0-1); Eosinophil# 0.07 X10^3/uL; Eosinophils% 0.8 % (0-5); Hematocrit 35.3 % (37-47); Hemoglobin 11.7 g/dL (12.0-15.0); Lymphocyte # 1.74 X10^3/ul (0.83-4.51); Lymphocyte % 19.4 % (19-41); Mean Corp Hgb Conc 33.1 g/dL (32-36); Mean Corpuscular Volume 84.4 fL (81-99); Mean Platelet Vol. 11.1 fl (6.2-12.0); Monocyte# 0.74 X10^3/uL; Monocyte% 8.3 % (0-10); NRBC Flagged by Analyzer 0 % (0-5); Neutrophil # 6.33 X10^3/uL (2.7-7.7); Neutrophil % 70.7 % (47-70); Platelet Count 268 K/mm3 (150-450); RBC Distribution Width CV 12.6 % (11.6-14.6); RBC Distribution Width SD 38.5 fl (35.1-43.9); Red Blood Count 4.18 M/mm3 (4.2-5.4)
[2021-04-18] MEDS: miSOPROStol 25 MCG TABLET PO (20:23)
--- NOTE | 2021-04-18 22:08 | PCM.HP.BLA ---
History and Physical Date of Admission: 04/18/21 Chief complaint: Induction of labor at term History of present illness: 30-year-old at 39 weeks and 1 day with JOLANTA: 04/24/2021 arrives for induction of labor at term. Denies headache, visual changes, chest pain, shortness of breath, nausea vomiting, right upper quadrant pain. Patient states good movement. Obstetric history: G1: Vacuum-assisted vaginal delivery at 41 weeks male 12/23/2017 G2: Current Past medical history: None Medications: vitamin Past surgical history: LASEK eye surgery, wisdom teeth extraction, SVT cardiac ablation Allergies: No known drug allergies Family history: Denies history of DVT or PE Social history: Denies smoking, alcohol use, drug use Review of systems: Besides the above pertinent positives a full review of systems was performed and found to be negative Physical exam: Vitals: Blood pressure 134/66 pulse 64 SPO2 99% on room air General: Normal-appearing no acute distress HEENT: Normocephalic/atraumatic no cervical lymphadenopathy Cardiac/respiratory: No use of accessory muscles, nonlabored breathing Abdomen: Soft, nontender, gravid Extremities: No peripheral edema normal peripheral pulses Psych: Normal affect normal demeanor nonpressured speech Labs: White blood cell count 9.0, hemoglobin 11.7, hematocrit 35.3%, platelets 268. Blood type B- antibody negative Assessment and plan: 30-year-old at 39 weeks and 1 day arrives for induction of labor at term Admit labor and delivery CEFM GBS negative Cytotec induction Routine orders Anesthesia to see
[2021-04-18 22:29] VITALS: BP 130/68; PULSE 71; TEMP 36.7
[2021-04-18 22:31] VITALS: PULSE 63; O2SAT 98
[2021-04-19] VITALS (46 sets, daily range): BP systolic 101–157; BP diastolic 53–77; PULSE 49–90; RESP 16; TEMP 36.5–36.9; O2SAT 96–99
[2021-04-19] MEDS: miSOPROStol 50 MCG TABLET PO (00:40)
[2021-04-19] MEDS: 0.9% Saline Lock 10 ML Syringe IV ×2 (08:38→19:22)
[2021-04-19] MEDS: Oxytocin 30 units/NS 500 ml 30 UNITS/500 ML IV.SOLN IV (08:38)
[2021-04-19] MEDS: Lactated Ringers 500 ML 999 ML IV (13:07)
[2021-04-19] MEDS: fentaNYL-bupivacaine (epidural) 100 ML BAG EPIDURAL (14:00)
[2021-04-19] MEDS: Oxytocin 30 units/NS 500 ml 30 UNITS/500 ML IV.SOLN 334 UNITS IV (16:47)
--- NOTE | 2021-04-19 17:02 | EX.PCM.OBRPT ---
Assessment & Plan (1) (spontaneous vaginal delivery): Maternal Data Information JOLANTA Calculator Estimated Delivery Date Method Current WG Current Estimate 04/24/21 LMP (Certain) 39w 2d Vaginal Delivery Maternal Presentation Maternal Presentation: Elective Induction Type of Induction: Pitocin, Amniotomy and Cytotec Operative Information Date of Procedure: 04/19/21 Pre-Operative Diagnosis: 39-2/7 weeks gestation Post-Operative Diagnosis: 39-2/7 weeks gestation Surgery / Procedure Performed: Spontaneous Vaginal Delivery Type of Anesthesia: Epidural Anesthesiologist: Vaibhav Yip Drain: Perez to straight drain Estimated Blood Loss: 200 ml Time of Delivery: 14:42 Findings Description of Procedure: Patient was fully dilated and +2 station on my arrival. She pushed with good maternal effort to deliver a male in OA, nuchal cord was reduced at the perineum. The was placed on the maternal abdomen and further attended by nursery personnel. The cord was doubly clamped and cut at 2 minutes of life. The placenta delivered spontaneously and appeared intact on inspection. Cord blood specimen was obtained for Rh- status. First-degree vaginal laceration was repaired using 3-0 Vicryl repeat. There is excellent hemostasis. The fundus was firm at the umbilicus. Sponge, needle counts correct x2. Presentation: Vertex Time of Membrane Rupture: 1301h 04/19/21 Amniotic Fluid Description: Clear Placental Delivery Description: Spontaneous Placenta Disposition: [facility] Cord Vessel Description: 3 Vessels Cord Entanglement: Around neck x 1, loose A Gender: Male (1 minute): 8 (5 minute): 9 Delayed Cord Clamping: Yes Post Vaginal Delivery Medications Given After Delivery: IV Pitocin Episiotomy Description: None Laceration: Vaginal Extension/lac and 1st degree Complication Complications: None
[2021-04-19] MEDS: Ibuprofen 600 MG Tablet PO (19:23)
[2021-04-20 00:20] VITALS: BP 119/56; PULSE 63; RESP 16; TEMP 36.4
[2021-04-20] MEDS: Acetaminophen 500 MG Tablet 1000 MG PO ×2 (00:34→12:23)
[2021-04-20 03:45] VITALS: BP 122/58; PULSE 49; RESP 16; TEMP 36.5
[2021-04-20] MEDS: Ibuprofen 600 MG Tablet PO ×3 (03:48→16:02)
--- NOTE | 2021-04-20 08:10 | PCM.PN.OB ---
Subjective Subjective No issues overnight. She is cramping intermittently, but pain is manageable. OOB, ambulating and voiding without difficulty. She is , it is going well. Denies heavy lochia. Objective Data Objective Data Vital Signs: Vital Signs Temp Pulse Resp BP Pulse Ox 97.7 F L 49 L 16 122/58 H 96 04/20/21 03:45 04/20/21 03:45 04/20/21 03:45 04/20/21 03:45 04/19/21 20:30 Oxygen Delivery Method Room Air Weight: 97.704 kg Body Mass Index (BMI) 33.7 Intake & Output: Intake and Output for Last 24 Hours 04/18/21 04/19/21 04/20/21 23:59 23:59 23:59 Intake Total 31.67 / 31.67 2942.54 / 2942.54 Output Total 850 / 850 400 / 400 Balance 31.67 / 31.67 2092.54 / 2092.54 -400 / -400 Lab / Micro Data Result Diagrams: 04/18/21 19:45 Micro: Microbiology 04/18/21 20:10 Nasal Secretion SARS-CoV-2 Antigen (Rapid) - Final Physical Exam Const alert, oriented x3 and no apparent distress Resp normal respiratory effort and normal air movement Cardio regular rate, regular rhythm, S1 normal heart sound and S2 normal heart sound GI soft to palpation, non-tender and non-distended Uterus Palpation: uterus fundus firm and other OB fundus nontender Extremity no calf tenderness and no pedal edema Neuro oriented x3 Assessment & Plan (1) (spontaneous vaginal delivery): PLAN: PPD#1 s/p doing well. B neg, infant also B neg Routine care Plan for sc home later today
--- NOTE | 2021-04-20 08:14 | PCM.DC ---
Discharge Instructions Diet Discharge Diet: No restrictions Activity Discharge Activity: Return to Normal Activity May resume sexual activity in: 4-6 weeks Lifting Restrictions: 10 lb Dressing / Incision Call your doctor if you observe: Fever of 101 or Higher, Using more than 1 pad per hour, Shortness of breath, Chest pain, Calf discomfort, Uncontrolled pain and - (Persistent or severe headache) Follow Up Care Please Follow Up With: Ly Barber MD When: 3 weeks for telehealth follow up 6 weeks for visit Test Results: Test results from this visit will be discussed in further detail at your follow-up appointment, if applicable. Discharge Plan Admission Admit Date/Time: 04/18/21 19:10 Primary Reason for Your Visit: Vaginal delivery Attending Provider: Ly Ritter Primary Care Provider: Fredy Atris Discharge Orders/Prescriptions Prescriptions: New ibuprofen 800 mg tablet 800 mg PO Q8H PRN (Reason: pain) Qty: 30 RF: 0 Continued Prenatabs FA 1 TABLET tablet 1 tab PO DAILY RF: 0 Referrals / Follow Up: Fredy Artis MD [Primary Care Provider] - Disposition Disposition (needs filled in before D/C Order can be placed): Home, Self Care
[2021-04-20 08:25] VITALS: BP 121/60; PULSE 58; RESP 16; TEMP 36.3; O2SAT 99
[2021-04-20 12:36] VITALS: BP 129/54; PULSE 56; RESP 16; TEMP 36.6; O2SAT 97
--- NOTE | 2021-04-20 14:01 | CM.ED ---
MARCELINA Note Referral Reason: History of Anxiety Referral Source: dairy cattle farm manager Gemma HEWITT contacted Gemma dairy cattle farm manager who reported a referral for patient due to anxiety. SW met with patient in her room. Patient was dressing the and then held the through the whole interview. Patient smiling and appears to be bonding with the nb. MARCELINA spoke to JEB Dumont who is caring for patient and nb and she voiced no concerns regarding patient and . Mom: Piter PNC:Jon Barber Control: Patient said we are done and after her 6 week follow up appointment her will have a vasectomy Baby: Ramirez : 04/19/[birth year] Apgars: 8/9 Weight: 3390 grams /7# 8 ounces Director Of Engineering: Brie at [facility] Other children: Dalton, age 3 Housing: Patient, Dalton hernandez and Ramirez reside in a home in [place] Transportation: Patient has access to transportation Supplies: Patient reports she has all supplies including clothes, diapers and carseat. Support: Patient's mom, dad, aunt, in laws who live locally, 20 minutes away and patients best friend who lives in [place] Education: Patient graduated [employer], College and obtained her Masters in Senior Applications Architect. 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 She has been in her current position since August an plans to take 12 weeks off work. Patient enjoys her current job. Patient said that her mom, in laws and a neighbor who is a weapons system instrument mechanic will be caring for her children when she returns to work. Patient and her are also foster parents for [facility]. Agency Involvement: Patient reports no agency involvement currently. Patient reports previous history of counseling at [facility]. FOB: Brannon, MALGORZATA was not present. He had gone to the house to get some supplies for patient and the nb. Time Together: Together since 2011, 7 years Involved at : Yes Employment: [employer] in [place] Other Children: Dalton, age 3 FOB MH/AOD/ Domestic Violence History. Patient denied Maternal MH History: Patient reports history of anxiety. She said that she may explore medication. Patient said that after the of her first child she took medication (unable to recall the name) but it didn't help. Patient said that she is open to medication if she feels she needs it. Patient said that her is also very good about addressing any mental health concerns he has regarding patient. Patient said that she had been in counseling in the past at [facility]. Patient said that she may explore counseling again as there are some situational issues involving her sister who resides with their parents and her sister using drugs and having drug friends in the home and patient not allowing her children to be in her parents home causing some relationship issues. Patient said that she feels after the first she was so concerned about being perfect but this time she feels comfortable as she knows what to expect. Patient said that her need for counseling would be related to the current situational issues with her sister and parents. Patient said that she went to counseling as a teen at [facility] in [place] and to [facility], 4 years ago. Patient was educated on Post Depression. SW also discussed the PHP/IOP program that [facility] offers as a resource. Patient was educated on Shaken Baby and Safe Sleeping Patient denied smoking or drug use. Patient said that she socially drinks when not . She said that if she drinks she will get the test strips to ensure that alcohol is not in her breast milk. Patient appears comfortable with going home. Patient reactive and appears confident in her role as parent. Patient is open to speaking to professionals and asking for help as she has done in the past for counseling and psychiatric medication. MARCELINA provided resource packet for patient. No further SW needs at this time. SW remains Available. Plan: Home Mary SAMUEL
[2021-04-20 17:16] VITALS: BP 133/70; PULSE 60; RESP 16; TEMP 36.4
--- NOTE | 2021-04-24 14:15 | NURSING ---
On follow up visit with Padmaja mother doing well, no incision, vaginal bleeding slowing, no symtoms of High BP, she liked all her nurses.
== END 2021-04-20 18:00 | disposition home or self-care (01) | DRG 807 ==
PROVIDERS: Obstetrics & Gynecology; Admitting Provider Obstetrics & Gynecology; Visit Provider Obstetrics & Gynecology
DX: O69.81X0 Labor and delivery complicated by cord around neck, without compression, not applicable or unspecified (principal); Z37.0 Single live birth; O70.0 First degree perineal laceration during delivery; Z3A.39 39 weeks gestation of pregnancy
CPT/HCPCS: 59025; 59050; 85025; 86850; 86900; 86901; 87426; 99218; J7120; 90686; A4216; G0378

== ENCOUNTER → 2022-05-30 | Outpatient (CLI) | payer OTHER, SELFPAY ==
[2022-06-09 17:00] LABS: HPV APTIMA, High Risk Negative (Negative)
== END | disposition home or self-care (01) ==
LOC: LABSPEC 15:46
PROVIDERS: Visit Provider Student in an Organized Health Care Education/Training Program
DX: Z12.4 Encounter for screening for malignant neoplasm of cervix (principal)
CPT/HCPCS: 87624; 88175; G0145

== ENCOUNTER → 2022-05-31 | Outpatient (CLI) | payer OTHER, SELFPAY ==
[2022-05-31 08:50] LABS: AST(SGOT) 12 U/L (15-37); Alanine Aminotransfer ALT/SGPT 22 U/L (13-56); Albumin, Serum 3.9 g/dL (3.2-5.0); Alkaline Phosphatase 67 U/L (45-117); Anion Gap 6 (5-15); BUN 9 mg/dL (7-18); BUN/Creat Ratio 11.6 RATIO (10-20); Calcium,Total 9.5 mg/dL (8.5-10.1); Chloride 107 mmol/L (98-107); Cholesterol 210 mg/dL (200); Creatinine, Serum 0.78 mg/dL (0.55-1.02); EST Glomerular Filtration Rate 91 mL/min (>60); Est Glom Filt Rate - Afr Amer 111 mL/min (>60); Globulin 3.8 g/dL (2.2-4.2); Glucose 95 mg/dL (74-106); High Density Lipoprotein 54 mg/dL; Potassium 4.2 mmol/L (3.5-5.1); Protein, Total 7.7 g/dL (6.4-8.2); Sodium Level 139 mmol/L (136-145); Triglycerides 101 mg/dL; Very Low Density Lipoprotein 20 mg/dL (5-40)
== END | disposition home or self-care (01) ==
LOC: LAB 07:42
PROVIDERS: Visit Provider Nurse Practitioner Family
DX: Z00.00 Encounter for general adult medical examination without abnormal findings (principal)
CPT/HCPCS: 36415; 80053; 80061

== ENCOUNTER → 2024-05-10 | Outpatient (CLI) | payer OTHER, SELFPAY | END | disposition home or self-care (01) | LOC: LABSPEC 16:36 | PROVIDERS: Referring Provider Nurse Practitioner Women's Health; Visit Provider Nurse Practitioner Women's Health | DX: N89.8 Other specified noninflammatory disorders of vagina (principal) | CPT/HCPCS: 87070; 87205 ==